=== PATIENT | male | born 1980 | race African-American/Black ===

== ENCOUNTER 2020-08-02 20:58 | Emergency (ER) | payer MEDICARE ==
[~2020-08-02] VITALS: Ht 198.1 cm; Wt 118.2 kg
[2020-08-02] MEDS ORDERED: VENL-193 PO (23:23)
[2020-08-03] MEDS: IBUPROFEN 600 MG TABLET PO ONE (01:01)
[2020-08-03] MEDS: ACETAMINOPHEN 500 MG TABLET PO ONE (01:01)
[2020-08-03 01:17] VITALS: BP 131/76
== END 2020-08-03 01:48 | disposition home or self-care (01) ==
LOC: EMS 21:00 → EDBD 21:00 → EMS 08-03 01:48
DX: F32.9 Major depressive disorder, single episode, unspecified (principal); F25.9 Schizoaffective disorder, unspecified; R45.851 Suicidal ideations; K08.89 Other specified disorders of teeth and supporting structures
CPT/HCPCS: Z7502; Z7610

== ENCOUNTER 2020-08-07 08:54 | Emergency (ER) | payer MEDICARE ==
[~2020-08-07] VITALS: Ht 188 cm; Wt 127.3 kg
[~2020-08-07 08:54] MED LIST: VENL-193 PO
[2020-08-07 10:01] LABS: COVID AG,FIA SOURCE NASOPHARYNGEAL
[2020-08-07 11:00] VITALS: BP 124/79
== END 2020-08-07 12:27 ==
LOC: EMS 08:55
DX: B34.9 Viral infection, unspecified (principal); F41.9 Anxiety disorder, unspecified; F20.9 Schizophrenia, unspecified; F17.210 Nicotine dependence, cigarettes, uncomplicated; F12.90 Cannabis use, unspecified, uncomplicated; Z20.828 Contact with and (suspected) exposure to other viral communicable diseases; Z90.89 Acquired absence of other organs
CPT/HCPCS: 87426

== ENCOUNTER 2021-02-23 16:27 | Emergency (ER) | payer MEDICARE, OTHER ==
[~2021-02-23] VITALS: Ht 200.7 cm; Wt 122.3 kg
[2021-02-23] MEDS ORDERED: LEVO75 PO (16:47)
[2021-02-23] MEDS ORDERED: HYDR25TA2 PO (16:47)
[2021-02-23 19:04] VITALS: BP 139/88
== END 2021-02-23 19:45 | disposition left against medical advice (07) ==
LOC: EMS 16:27
DX: I10 Essential (primary) hypertension (principal); Z76.0 Encounter for issue of repeat prescription
CPT/HCPCS: 99281; Z7502